=== PATIENT | male | born 1975 | race Caucasian/White ===

== ENCOUNTER 2022-12-27 13:26 | Outpatient (CLI) | payer OTHER, BC ==
--- NOTE | 2022-12-27 14:22 | XRAY Report ---
PROCEDURE: Finger(s) LT INDICATIONS: OTHER INJURY OF UNSPECIFIED BODY REGION TECHNIQUE: AP hand, 2 views of the second finger(s) acquired. COMPARISON: None FINDINGS: Bones: No fractures or dislocations. No suspicious bony lesions. Soft tissues: No suspicious soft tissue calcifications. IMPRESSION: No displaced fracture can be seen. Reviewed by: Bashir Bonilla MD on 12/27/2022 1:20 PM [facility] Approved by: Bashir Bonilla MD on 12/27/2022 1:20 PM [facility] Station ID: [id number]
== END 2022-12-27 13:27 | disposition home or self-care (01) ==
LOC: DI 13:26
PROVIDERS: ATTEND Nurse Practitioner
DX: T14.8XXA Other injury of unspecified body region, initial encounter (principal)